=== PATIENT | male | born 1995 | race Caucasian/White ===

== ENCOUNTER → 2022-04-08 | Emergency (ER) | payer OTHER ==
[~2022-04-08] VITALS: Ht 175.3 cm; Wt 106.6 kg
[~2022-04-08] MED LIST: AMOX875T2 PO
[2022-04-08 02:13] VITALS: BP 131/72
== END | disposition home or self-care (01) ==
LOC: ER 02:01
DX: J02.9 Acute pharyngitis, unspecified (principal); F17.200 Nicotine dependence, unspecified, uncomplicated